=== PATIENT | male | born 2000 | race Caucasian/White ===

== ENCOUNTER 2024-01-08 09:36 | Emergency (ER) | payer BC, SELFPAY ==
[2024-01-08 09:40] VITALS: BP 124/85
[2024-01-08] MEDS: NSS 1000 IV (11:28)
[2024-01-08 11:29] VITALS: BMI 20.1
[2024-01-08 11:36] VITALS: BP 131/75
[2024-01-08 11:40] LABS: % Basophils 0.3 % (0-2); % Immature Granulocytes 0.3 % (0-0.5); % Lymphocytes 27.7 % (20.5-51.1); % Monocytes 14.1 % (1.7-9.3); % Neutrophils 56.6 % (42.2-75.2); Absolute Lymphocytes 0.9 10^3/uL (1.2-3.4); Absolute Monocytes 0.4 10^3/uL (0.1-0.6); Absolute Neutrophils 1.8 10^3/uL (1.4-6.5); Hemoglobin 15.2 g/dL (13.0-18.0); Mean Corp Hgb Conc. 35.3 g/dL (33.0-37.0); Mean Corpuscular Hgb 29.1 pg (27.0-31.0); Mean Corpuscular Volume 82.2 fL (80.0-94.0); Mean Platelet Volume 10.5 fL (7.4-10.4); Nucleated Red Blood Cells % 0 % (-); Platelet Count 149 10^3/uL (130-400); Red Blood Cell Count 5.23 10^6/uL (4.70-6.10); White Blood Cell Count 3.1 10^3/uL (4.8-10.8)
[2024-01-08 11:53] LABS: ALT (SGPT) 24 U/L (0-50); AST (SGOT) 28 U/L (17-59); Albumin 4.3 g/dl (3.5-5.0); Alkaline Phosphatase 70 U/L (38-126); Blood Urea Nitrogen 7 mg/dl (9-20); Calcium 9.5 mg/dl (8.4-10.2); Carbon Dioxide 30 mmol/L (22-30); Chloride 99 mmol/L (98-107); Estimated Creatinine Clearance > 125 ml/min; Glucose 105 mg/dl (70-99); Potassium 3.9 mmol/L (3.5-5.1); Sodium 138 mmol/L (135-145); Total Bilirubin 0.7 mg/dl (0.2-1.3); Total Protein 7.1 g/dl (6.3-8.2); eGFR > 60.00
[2024-01-08 11:58] LABS: COVID-19 Antigen Negative (Negative)
--- NOTE | 2024-01-08 12:25 | ED.GENMED ---
History of Present Illness
General
Chief Complaint: Abdominal Symptoms
Source: patient
Exam Limitations: none
Time Seen by Provider: 01/08/24 09:47
Travel History
Have you had any contact with someone who has COVID-19?: No
Do you have any symptoms of coronavirus? Fever > 100 degrees, chills, cough, shortness of breath, sore throat, loss of taste or smell, muscle aches, or headache?: Yes
Symptoms:: fever
History of Present Illness
History of Present Illness:
23-year-old female who presents with congestion, mild sore throat, cough, nausea, vomiting, loose stools since Tuesday. He states he started with nasal congestion and cough. Patient states he has got little bit abdominal cramping. No melena. No
hematochezia. No shortness of breath. Does attend college
Past History
Past History
ED Past Medical History: None
ED Past Surgical History: None
Patient has exhibited threatening behavior?: No
Social History
Tobacco: Vaping
Alcohol: Occasional (Rarely)
Drug: Marijuana
Personal: Single
Living: with family
Employment: Student
Phy Exam
Physical Exam
Physical Exam:
CONSTITUTIONAL Patient alert and oriented to person, place and time. Well-appearing. Vital signs reviewed.
HEAD atraumatic, normocephalic.
EYES eyelids normal to inspection, Extraocular muscles intact, Conjunctiva normal, Sclera normal.
NECK normal range of motion, Trachea midline, no jugular venous distention.
RESPIRATORY CHEST No respiratory distress noted, Chest expansion equal, Bilateral breath sounds clear.
CARDIOVASCULAR regular rate and rhythm, Heart sounds normal.
ABDOMEN abdomen nontender, Bowel sounds normal. No distention.
BACK normal inspection, no obvious deformities
UPPER EXTREMITY range of motion normal, Motor strength normal, no cyanosis, no edema.
LOWER EXTREMITY range of motion normal, Motor strength normal, no cyanosis, no edema.
NEURO Speech normal, No focal motor deficits, Sherine coma scale 15, Memory normal, Cranial Nerves intact to screening exam.
SKIN skin warm, dry, and normal in color.
PSYCHIATRIC patient oriented to person place and time, Normal affect.
Course
Orders/Labs/Results
Orders:
Orders
01/08/24 10:27
0.9% Sodium Chloride 1000 ml [Nss] 1,000 ml IV BOLUS
01/08/24 11:22
CBC/With Diff [Complete Blood Count/With Diff] Stat
CMP [Comprehensive Metabolic Panel] Stat
COVID-19 Antigen Urgent
Source: Nasal Swab
Influenza A+B Rapid Molecular Stat
[place] Source: Nasal Swab
Specimen Description:
Abnormal Lab Results
01/08/24
11:22
WBC 3.1 L 10^3/uL
(4.8-10.8)
MPV 10.5 H fL
(7.4-10.4)
Absolute Lymphs (auto) 0.9 L 10^3/uL
(1.2-3.4)
Monocytes % 14.1 H %
(1.7-9.3)
BUN 7 L mg/dl
(9-20)
Creatinine 0.6 L mg/dL
(0.7-1.3)
Glucose 105 H mg/dl
(70-99)
01/08/24 11:22
01/08/24 11:22
Vital Signs
Initial and Last Documented VS:
Initial Vital Signs
Temp Pulse Resp BP Pulse Ox
98.1 F 62 17 124/85 98
01/08/24 09:40 01/08/24 09:40 01/08/24 09:40 01/08/24 09:40 01/08/24 09:40
Last Documented Vital Signs
Temp Pulse Resp BP Pulse Ox
98.2 F 54 16 131/75 97
01/08/24 11:36 01/08/24 11:36 01/08/24 11:36 01/08/24 11:36 01/08/24 11:36
MDM/Problems Addressed
MDM/Problems Addressed:
Influenza, viral syndrome
*Pulse Oximetry
Patient hypoxic: no
*Critical Care Note
Total Time (30-74mins, 75-104mins- exclusive of procedures): Not Applicable
Data Reviewed
Source: patient
Prescriptions/Medications Considered But Not Given:
Consider Tamiflu but patient has had symptoms for 6 days
Further Testing Considered But Not Given:
Consider chest x-ray but lungs clear
Patient Management
Escalation/DeEscalation of care consider admission/obs:
Appears well. Labs grossly unremarkable. Influenza positive. Okay for discharge
ED Attending Note
-
Portions of this chart may have been created with voice recognition software.� Occasional wrong word or��sound alike� substitutions may have occurred due to the inherent limitations of voice recognition software.
Discharge Plan
Departure
Patient Disposition: Home (Routine Discharge)
Date of Disposition: 01/08/24
Time of Disposition: 12:31
Patient with high blood pressure during this ER visit?: No
Discharge Problem:
Influenza
Instructions: Flu
Prescriptions:
No Action
alprazolam [Xanax] 0.5 mg Tablet
0.5 mg PO BID PRN (Reason: as directed)
escitalopram oxalate [Lexapro] 10 mg Tablet
10 mg PO DAILY
Referrals:
Km Riley MD [Family Provider] -
Activity Restrictions/Additional Instructions:
Please drink plenty of fluids. Please use Tylenol and ibuprofen as needed for body aches and fevers. Return immediately for worsening symptoms, intractable vomiting, abdominal pain or any other concerns.
Interventions
Interventions:
*General Assessment Last Done: 01/08/24 11:29
*Neglect/Abuse Screening Last Done: 01/08/24 11:29
ED- Fall Risk Assessment Last Done: 01/08/24 11:29
*ED COVID-19 Vaccine History Last Done: 01/08/24 09:43
DT-Jqtrth-Wmxotditmw Assessment Last Done: 01/08/24 12:23
== END 2024-01-08 12:49 | disposition home or self-care (01) ==
LOC: EMR 09:36
PROVIDERS: EMERGENCY PHYSICIAN Emergency Medicine; FAMILY PHYSICIAN Pediatrics
DX: J11.1 Influenza due to unidentified influenza virus with other respiratory manifestations (principal); F17.290 Nicotine dependence, other tobacco product, uncomplicated
CPT/HCPCS: 99284; 96360; 80053; 85025; 87502; 87811